=== PATIENT | male | born 1995 | race Caucasian/White ===

== ENCOUNTER 2017-05-31 17:20 | Emergency (ER) | payer OTHER ==
[~2017-05-31] VITALS: Ht 180.3 cm; Wt 77.5 kg
[2017-05-31 17:22] VITALS: TEMP 36.9; Ht 180.3 cm; Wt 77.5 kg
[2017-05-31] MEDS ORDERED: FAMOTIDINE 20 MG TAB PO ONE (17:45)
[2017-05-31] MEDS ORDERED: PRED20TA PO (18:11)
[2017-05-31 18:57] VITALS: BP 143/78; PULSE 59; O2SAT 100
--- NOTE | 2017-05-31 20:09 | EMERGENCY ROOM VISIT NOTE ---
History Report prepared by Cynthia: Jonathon Douglas Under the Supervision of: Dr. Robin Rodriguez M.D. First contact with patient: 17:26 Chief Complaint: ALLERGIC REACTION Stated Complaint: ALLERGIC REACTION History of Present Illness The patient is a 22 year old male who presents to the Emergency Room with complaints of a worsening generalized allergic reaction starting yesterday. The patient states that he had a wrap from [employer] which he has had before. He states that afterwards he got some lip tingling and stinging, and then he noticed that he had hives. He notes that he was having some lip swelling and small blotches on his chest that looked like mosquito bites. The patient states that he then took some Benadryl and fell asleep. This morning his hives were better and when he got back from class he fell asleep on his cough, and then when he woke up the hives were a lot worse, and he was very itchy. He has not taken any Benadryl today. The patient denies any breathing problems, vomiting, abdominal pain, chest pain, any new medications, new soaps, and new detergents. He states that he was not stung by a bee to his knowledge, and he states that he has no other medical problems or known allergies. The patient also states that he has no family history of known allergies. He states that there is no real pattern to the hives, though he notes that they do not go below his hips. The patient also states that today he had a [employer] sandwich which he has before , and he states that he does not have any pets. Source of History: patient Onset: yesterday Position: other (generalized) Quality: other (allergic reaction) Timing: worsening Modifying Factors (Relieving): other (Benadryl) Associated Symptoms: No chest pain, No vomiting, No abdominal pain Note: Associated symptoms: Hives, and itchiness Review of Systems See HPI for pertinent positives & negatives. A total of 10 systems reviewed and were otherwise negative. Past Medical & Surgical Medical Problems: (1) No chronic problems Family History Patient reports no known family medical history. Social History Smoking Status: Never Smoker Housing Status: lives with roommate Occupation Status: [employer] student Current/Historical Medications Scheduled Prednisone (Prednisone), 0 PO DAILY Physical Exam Vital Signs Date Time Temp Pulse Resp B/P (MAP) Pulse Ox O2 Delivery O2 Flow Rate FiO2 05/31/17 18:57 59 16 143/78 100 05/31/17 17:29 Room Air 05/31/17 17:22 36.9 81 20 140/87 99 Room Air Physical Exam Constitutional: Vital signs reviewed. Eyes: Pupils are equal round reactive to light. Conjunctiva are noninjected. ENT: Pharynx is clear without erythema or exudate. No swelling to the tongue or uvula. Mild upper lip swelling. Mucous membranes are moist. Neck supple without meningeal signs. Respiratory: Clear to auscultation bilaterally. Breath sounds are equal bilaterally. No wheezing or stridor. Cardiovascular: Regular rate and rhythm. No rubs or gallops. GI: Soft, nondistended and nontender. Bowel sounds are present. Musculoskeletal: No peripheral edema. No lower extremity tenderness. Integumentary: Diffuse hives throughout the trunk, upper extremities, neck and face. Neurological: The patient is awake and alert. No focal deficits. Psychiatric: Normal affect. Medical Decision & Procedures Medications Administered Medications (Trade) Dose Ordered Sig/Cadence Route Start Time Stop Time Status Last Admin Dose Admin Prednisone (PredniSONE TAB) 60 mg NOW STAT PO 05/31/17 17:36 05/31/17 17:37 DC 05/31/17 17:56 60 MG Diphenhydramine HCl (Benadryl Cap) 50 mg NOW ONCE PO 05/31/17 17:45 05/31/17 17:47 DC 05/31/17 17:56 50 MG Famotidine (Pepcid Tab) 20 mg NOW ONCE PO 05/31/17 17:45 05/31/17 17:47 DC 05/31/17 17:56 20 MG ED Course 1726: The patient was evaluated in room A11. A complete history and physical exam was performed. 1736: Prednisone 60mg PO 1745: Pepcid 20mg PO, Benadryl 50mg PO 1845: Upon reevaluation his hives have improved and he will be discharged home. Medical Decision This is a 22-year-old male sense with hives. Differential diagnosis includes food allergy, environmental allergy, idiopathic urticaria, atopy. I did perform a limited focused review of portions of the patient's old chart on the electronic medical record. The patient has no prior visits. I did evaluate the patient as noted above. The patient is presenting with hives starting yesterday. He could not identify any specific allergen. He stated it got better with Benadryl but then came back after taking a nap today. He has diffuse urticaria to his trunk, upper extremities, neck and face. He has no glottic swelling or signs of angioedema. He denies any shortness of breath. I did treat him with prednisone, Pepcid and Benadryl. I did reassess the patient. He does have improvement of the swelling and urticaria to his face and trunk. I did recommend he follow-up closely with his regular doctor as well as an separations scientist for skin testing. He was discharged with a prescription for prednisone. He was advised to take antihistamines and given return instructions as outlined below. Medication Reconcilliation Current Medication List: was personally reviewed by me Blood Pressure Screening Patient's blood pressure: Elevated blood pressure Blood pressure disposition: Referred to PCP Impression Primary Impression: Acute allergic reaction Scribe Attestation The scribe's documentation has been prepared under my direct and personally reviewed by me in its entirety. I confirm that the note above accurately reflects all work, treatment, procedures, and medical decision making performed by me. Departure Information Dispostion Home / Self-Care Prescriptions Prednisone (Prednisone) 20 Mg Tab 0 PO DAILY, #14 TAB 3 TABS DAILY FOR 2 DAYS, THEN 2 TABS DAILY FOR 2 DAYS, THEN 1 TAB DAILY FOR 2 DAYS, THEN 1/2 TAB DAILY FOR 2 DAYS. Prov: Robin Rodriguez M.D. 05/31/17 Referrals No Doctor, Assigned (PCP) Forms HOME CARE DOCUMENTATION FORM, IMPORTANT VISIT INFORMATION Patient Instructions ED Allergic Reaction General Other, My [facility] Additional Instructions You have been examined and treated today on an emergency basis only. This is not a substitute for, or an effort to provide, complete comprehensive medical care. It is impossible to recognize and treat all injuries or illnesses in a single emergency department visit. It is therefore important that you follow up closely with your physician and an separations scientist. Call as soon as possible for an appointment. Return immediately for worsening symptoms or if you develop trouble breathing, swelling to your tongue or throat or any other concerning symptoms. Problem Qualifiers Primary Impression: Acute allergic reaction Encounter type: initial encounter Qualified Codes: T78.40XA - Allergy, unspecified, initial encounter
== END 2017-05-31 18:57 | disposition home or self-care (01) ==
LOC: C.EDB 17:22 → C.EDA 18:57
DX: T78.40XA Allergy, unspecified, initial encounter (principal); X58.XXXA Exposure to other specified factors, initial encounter; R22.0 Localized swelling, mass and lump, head; L50.9 Urticaria, unspecified; R03.0 Elevated blood-pressure reading, without diagnosis of hypertension